=== PATIENT | female | born 1990 | race African-American/Black ===

== ENCOUNTER 2020-06-26 16:17 | Inpatient (IN) | payer SELFPAY ==
[2020-06-26 19:48] VITALS: BMI 51.2
[2020-06-26] MEDS ORDERED: Acetaminophen 650 MG Suppository PR PRN (21:33)
[2020-06-26] MEDS ORDERED: Ondansetron PF 4 MG/2 ML Vial IVP PRN (21:33)
[2020-06-26] MEDS ORDERED: Ondansetron ODT 4 MG TAB PO PRN (21:33)
[2020-06-26] MEDS ORDERED: Albuterol 200 PUFF (6.7GM INHALER) INH PRN (21:41)
[2020-06-27 06:22] LABS: ALT (SGPT) 26 U/L (8-55); AST (SGOT) 26 U/L (5-34); Albumin 3.4 g/dL (3.5-5.0); Alkaline Phosphatase 59 U/L (40-110); Anion Gap 13 mmol/L (10-20); BUN (Urea Nitrogen) 10 mg/dL (7.0-18.7); Bilirubin, Total 0.4 mg/dL (0.2-1.2); Calc. Creatinine Clearance 184 mL/min (70-130); Calcium 7.7 mg/dL (7.8-10.44); Carbon Dioxide 27 mmol/L (22-29); Chloride 107 mmol/L (98-107); Globulin 3.1 g/dL (2.4-3.5); Glucose 137 mg/dL (70-105); Potassium 4.6 mmol/L (3.5-5.1); Protein, Total 6.5 g/dL (6.0-8.3); Sodium 142 mmol/L (136-145)
[2020-06-27 06:41] LABS: Hemoglobin 8.5 g/dL (12.0-16.0); Hypochromia SLIGHT = 6-15 cells (100X) (0-5/hpf); Lymphocytes 38 % (21-51); MDiff Complete? YES; Mean Corpuscular HGB CONC 28.9 g/dL (32.0-36.0); Mean Corpuscular Hemoglobin 21.1 pg (27.0-31.0); Mean Corpuscular Volume 73.1 fL (78.0-98.0); Mean Platelet Volume 9.6 fL (7.4-10.4); Monocytes 4 % (0-10); Neutrophil 58 % (42-75); Nucleated RBC 1 % (0); Platelet Count 435 thou/uL (130-400); Platelet Morphology Comment Appears Increased; RBC Distribution Width 20.4 % (11.5-14.5); Red Blood Cell (RBC) Count 4.03 mill/uL (4.20-5.40); White Blood Cell (WBC) Count 10.2 thou/uL (4.8-10.8)
[2020-06-27] MEDS: DULoxetine 60 MG CAP PO SCH (07:48)
[2020-06-27] MEDS: Dexamethasone 4 MG TAB PO SCH (07:48)
[2020-06-27] MEDS: Benztropine 1 MG TAB PO SCH ×2 (07:48→20:49)
[2020-06-27] MEDS: Ascorbic Acid 500 mg Chewable Tablet PO SCH (07:49)
[2020-06-27] MEDS: Zinc Sulfate 220 MG CAP PO SCH (07:49)
[2020-06-27] MEDS ORDERED: REMDESIVIR (EUA) 200 MG in Sodium Chloride 0.9% 250 ML 210 ML IV SCH (08:00)
[2020-06-27] MEDS ORDERED: Atomoxetine Hcl [Strattera] 60 MG Capsule PO SCH (09:00)
[2020-06-27] MEDS ORDERED: Enoxaparin Sodium 40 MG/0.4 ML SYRINGE SC SCH (09:00)
[2020-06-27] MEDS: Acetaminophen 325 MG TAB PO PRN (20:49)
[2020-06-27] MEDS: Guaifenesin DM 100-10/5 ML UDCUP PO PRN (20:53)
[2020-06-27] MEDS: Enoxaparin Sodium 100 MG/ML SYRINGE SC SCH (20:56)
[2020-06-27] MEDS ORDERED: ILOPERIDONE 6 MG PO SCH (21:00)
[2020-06-27 23:23] LABS: Pregnancy Test - Urine (BHCG) Negative (Negative); Pregu Control Background? CLEAR/WHITE (CLR/WHITE); Pregu Control Bar Appear? YES (CONTROL BAR)
[2020-06-27 23:28] LABS: Specific Gravity 1.031 (1.002-1.036)
[2020-06-28] MEDS: Guaifenesin DM 100-10/5 ML UDCUP PO PRN (05:45)
[2020-06-28] MEDS: Acetaminophen 325 MG TAB PO PRN (05:45)
[2020-06-28 06:31] LABS: Band 5 % (5-11); Hemoglobin 8.1 g/dL (12.0-16.0); Lymphocytes 22 % (21-51); MDiff Complete? YES; Mean Corpuscular HGB CONC 28.8 g/dL (32.0-36.0); Mean Corpuscular Hemoglobin 20.9 pg (27.0-31.0); Mean Corpuscular Volume 72.6 fL (78.0-98.0); Mean Platelet Volume 9.4 fL (7.4-10.4); Monocytes 7 % (0-10); Neutrophil 66 % (42-75); Nucleated RBC 1 % (0); Platelet Count 501 thou/uL (130-400); Platelet Morphology Comment Appears Increased; RBC Distribution Width 20.1 % (11.5-14.5); Red Blood Cell (RBC) Count 3.85 mill/uL (4.20-5.40); White Blood Cell (WBC) Count 10.1 thou/uL (4.8-10.8)
[2020-06-28 06:36] LABS: ALT (SGPT) 27 U/L (8-55); AST (SGOT) 25 U/L (5-34); Albumin 3.3 g/dL (3.5-5.0); Alkaline Phosphatase 52 U/L (40-110); Anion Gap 11 mmol/L (10-20); BUN (Urea Nitrogen) 12 mg/dL (7.0-18.7); Bilirubin, Total 0.4 mg/dL (0.2-1.2); CK (CPK) 258 U/L (29-168); Calc. Creatinine Clearance 193 mL/min (70-130); Carbon Dioxide 28 mmol/L (22-29); Chloride 108 mmol/L (98-107); Globulin 2.7 g/dL (2.4-3.5); Glucose 105 mg/dL (70-105); Iron 28 ug/dL (50-170); Iron Binding Capacity, Total 303 mcg/dL (265-497); Sodium 143 mmol/L (136-145)
[2020-06-28] MEDS ORDERED: Iopamidol 370 76% 100 ML VIAL ONE (08:29)
[2020-06-28] MEDS: DULoxetine 60 MG CAP PO SCH (08:46)
[2020-06-28] MEDS: Dexamethasone 4 MG TAB PO SCH (08:47)
[2020-06-28] MEDS: Benztropine 1 MG TAB PO SCH ×2 (08:47→20:10)
[2020-06-28] MEDS: Ascorbic Acid 500 mg Chewable Tablet PO SCH (08:47)
[2020-06-28] MEDS: Zinc Sulfate 220 MG CAP PO SCH (08:47)
[2020-06-28] MEDS: Enoxaparin Sodium 100 MG/ML SYRINGE SC SCH (08:48)
[2020-06-28] MEDS: REMDESIVIR (EUA) 100 MG in Sodium Chloride 0.9% 250 ML 230 ML IV SCH (08:51)
[2020-06-28] MEDS: Apixaban 5 MG TAB PO SCH (20:10)
[2020-06-29 06:18] LABS: Hypochromia SLIGHT = 6-15 cells (100X) (0-5/hpf); Lymphocytes 38 % (21-51); MDiff Complete? YES; Mean Corpuscular HGB CONC 28.6 g/dL (32.0-36.0); Mean Corpuscular Hemoglobin 20.9 pg (27.0-31.0); Mean Platelet Volume 9.2 fL (7.4-10.4); Microcytosis SLIGHT = 6-15 cells (100X) (0-5/hpf); Monocytes 2 % (0-10); Neutrophil 60 % (42-75); Platelet Count 513 thou/uL (130-400); Platelet Morphology Comment Appears Increased; RBC Distribution Width 20.1 % (11.5-14.5); Red Blood Cell (RBC) Count 3.82 mill/uL (4.20-5.40); White Blood Cell (WBC) Count 8.7 thou/uL (4.8-10.8)
[2020-06-29 06:26] LABS: ALT (SGPT) 36 U/L (8-55); AST (SGOT) 38 U/L (5-34); Albumin 3.2 g/dL (3.5-5.0); Alkaline Phosphatase 49 U/L (40-110); Anion Gap 10 mmol/L (10-20); BUN (Urea Nitrogen) 10 mg/dL (7.0-18.7); Bilirubin, Total 0.4 mg/dL (0.2-1.2); Calc. Creatinine Clearance 201 mL/min (70-130); Calcium 7.9 mg/dL (7.8-10.44); Carbon Dioxide 29 mmol/L (22-29); Chloride 108 mmol/L (98-107); Globulin 2.8 g/dL (2.4-3.5); Glucose 88 mg/dL (70-105); Potassium 4.1 mmol/L (3.5-5.1); Sodium 143 mmol/L (136-145)
[2020-06-29] MEDS: Ascorbic Acid 500 mg Chewable Tablet PO SCH (07:54)
[2020-06-29] MEDS: DULoxetine 60 MG CAP PO SCH (07:54)
[2020-06-29] MEDS: Zinc Sulfate 220 MG CAP PO SCH (07:54)
[2020-06-29] MEDS: Benztropine 1 MG TAB PO SCH ×2 (07:54→21:20)
[2020-06-29] MEDS: Apixaban 5 MG TAB PO SCH ×2 (07:54→21:25)
[2020-06-29] MEDS: Dexamethasone 4 MG TAB PO SCH (07:54)
[2020-06-29] MEDS: REMDESIVIR (EUA) 100 MG in Sodium Chloride 0.9% 250 ML 230 ML IV SCH (08:47)
[2020-06-29] MEDS: Guaifenesin DM 100-10/5 ML UDCUP PO PRN (21:21)
[2020-06-30 06:59] LABS: #Lymphocytes 1.8 thou/uL (1.20-3.40); #Monocytes 0.5 thou/uL (0.11-0.59); #Neutrophils 6.2 thou/uL (1.40-6.50); %Basophils 0.1 % (0.0-1.0); %Eosinophils 0.2 % (0.0-10.0); %Lymphocytes 21.1 % (21.0-51.0); %Monocytes 5.9 % (0.0-10.0); %Neutrophils 72.8 % (42.0-75.0); Hemoglobin 8.4 g/dL (12.0-16.0); Mean Corpuscular HGB CONC 28.3 g/dL (32.0-36.0); Mean Corpuscular Hemoglobin 20.5 pg (27.0-31.0); Mean Corpuscular Volume 72.4 fL (78.0-98.0); Mean Platelet Volume 9.4 fL (7.4-10.4); Platelet Count 548 thou/uL (130-400); RBC Distribution Width 20.4 % (11.5-14.5); Red Blood Cell (RBC) Count 4.12 mill/uL (4.20-5.40); White Blood Cell (WBC) Count 8.5 thou/uL (4.8-10.8)
[2020-06-30 07:17] LABS: ALT (SGPT) 109 U/L (8-55); AST (SGOT) 156 U/L (5-34); Albumin 3.3 g/dL (3.5-5.0); Alkaline Phosphatase 52 U/L (40-110); Anion Gap 16 mmol/L (10-20); BUN (Urea Nitrogen) 10 mg/dL (7.0-18.7); Bilirubin, Total 0.5 mg/dL (0.2-1.2); Calc. Creatinine Clearance 206 mL/min (70-130); Calcium 8.3 mg/dL (7.8-10.44); Carbon Dioxide 23 mmol/L (22-29); Chloride 105 mmol/L (98-107); Glucose 88 mg/dL (70-105); Potassium 4.1 mmol/L (3.5-5.1); Protein, Total 6.3 g/dL (6.0-8.3); Sodium 140 mmol/L (136-145)
[2020-06-30] MEDS: Dexamethasone 4 MG TAB PO SCH (08:45)
[2020-06-30] MEDS: REMDESIVIR (EUA) 100 MG in Sodium Chloride 0.9% 250 ML 230 ML IV SCH (08:45)
[2020-06-30] MEDS: Ascorbic Acid 500 mg Chewable Tablet PO SCH (08:45)
[2020-06-30] MEDS: Apixaban 5 MG TAB PO SCH ×2 (08:45→21:57)
[2020-06-30] MEDS: Zinc Sulfate 220 MG CAP PO SCH (08:46)
[2020-06-30] MEDS: DULoxetine 60 MG CAP PO SCH (08:46)
[2020-06-30] MEDS: Benztropine 1 MG TAB PO SCH ×2 (08:46→21:53)
[2020-06-30] MEDS: ILOPERIDONE 6 MG PO SCH ×3 (11:57→21:54)
[2020-06-30] MEDS: Guaifenesin DM 100-10/5 ML UDCUP PO PRN (21:53)
[2020-06-30] MEDS: Acetaminophen 325 MG TAB PO PRN (22:40)
[2020-07-01 06:47] LABS: Hemoglobin 8.3 g/dL (12.0-16.0); Mean Corpuscular HGB CONC 29.2 g/dL (32.0-36.0); Mean Corpuscular Hemoglobin 21.2 pg (27.0-31.0); Mean Corpuscular Volume 72.7 fL (78.0-98.0); Mean Platelet Volume 9.2 fL (7.4-10.4); Platelet Count 535 thou/uL (130-400); RBC Distribution Width 20.3 % (11.5-14.5); Red Blood Cell (RBC) Count 3.91 mill/uL (4.20-5.40); White Blood Cell (WBC) Count 10.5 thou/uL (4.8-10.8)
[2020-07-01 07:43] LABS: Anisocytosis MODERATE=16-30 cells (100X) (0-5/hpf); Band 4 % (5-11); Hypochromia SLIGHT = 6-15 cells (100X) (0-5/hpf); Lymphocytes 24 % (21-51); MDiff Complete? YES; Microcytosis SLIGHT = 6-15 cells (100X) (0-5/hpf); Monocytes 6 % (0-10); Neutrophil 66 % (42-75); Platelet Morphology Comment Appears Increased; Polychromasia SLIGHT = 2-3 cells (100X) (0-2/hpf)
[2020-07-01] MEDS: Apixaban 5 MG TAB PO SCH ×2 (09:16→20:56)
[2020-07-01] MEDS: Benztropine 1 MG TAB PO SCH ×2 (09:16→20:56)
[2020-07-01] MEDS: DULoxetine 60 MG CAP PO SCH (09:16)
[2020-07-01] MEDS: Dexamethasone 4 MG TAB PO SCH (09:17)
[2020-07-01] MEDS: Zinc Sulfate 220 MG CAP PO SCH (09:17)
[2020-07-01] MEDS: Ascorbic Acid 500 mg Chewable Tablet PO SCH (09:17)
[2020-07-01] MEDS: REMDESIVIR (EUA) 100 MG in Sodium Chloride 0.9% 250 ML 230 ML IV SCH (09:17)
[2020-07-01] MEDS: ILOPERIDONE 6 MG PO SCH ×2 (09:19→20:57)
[2020-07-01] MEDS: Acetaminophen 325 MG TAB PO PRN (20:56)
[2020-07-01] MEDS: Guaifenesin DM 100-10/5 ML UDCUP PO PRN (20:57)
[2020-07-02] MEDS: Dexamethasone 4 MG TAB PO SCH (08:40)
[2020-07-02] MEDS: Benztropine 1 MG TAB PO SCH ×2 (08:40→20:12)
[2020-07-02] MEDS: DULoxetine 60 MG CAP PO SCH (08:40)
[2020-07-02] MEDS: Zinc Sulfate 220 MG CAP PO SCH (08:41)
[2020-07-02] MEDS: Ascorbic Acid 500 mg Chewable Tablet PO SCH (08:41)
[2020-07-02] MEDS: ILOPERIDONE 6 MG PO SCH ×2 (08:42→20:12)
[2020-07-02] MEDS: Apixaban 5 MG TAB PO SCH ×2 (08:44→20:12)
[2020-07-02 20:52] VITALS: BP 132/59; TEMP 98
[2020-07-06] MEDS ORDERED: Apixaban 5 MG TAB PO SCH (09:00)
== END 2020-07-02 21:35 | disposition home or self-care (01) | DRG 177 ==
LOC: T4-B 16:17 → OBSVTOIN 21:33
PROVIDERS: ADMIT Internal Medicine; ATTEND Hospitalist
PROC: XW033E5 Introduction of Remdesivir Anti-infective into Peripheral Vein, Percutaneous Approach, New Technology Group 5 (ICD-10-PCS; principal; 2020-06-26)
PROC: 8E0ZXY6 Isolation (ICD-10-PCS; 2020-06-26)
DX: U07.1 COVID-19 (principal); J12.82 Pneumonia due to coronavirus disease 2019; J96.01 Acute respiratory failure with hypoxia; I26.99 Other pulmonary embolism without acute cor pulmonale; Z68.43 Body mass index [BMI] 50.0-59.9, adult; F31.9 Bipolar disorder, unspecified; F20.9 Schizophrenia, unspecified; E66.01 Morbid (severe) obesity due to excess calories; J45.20 Mild intermittent asthma, uncomplicated
CPT/HCPCS: 36415; 36416; 71275; 80053; 81025; 82550; 82728; 83540; 83550; 85025; 85379; 86140; 93970; J1650; J2405; J7050; J8540; Q0162; Q9967